=== PATIENT | male | born 1980 | race Caucasian/White ===

== ENCOUNTER 2018-01-01 23:47 | Inpatient (IN) | END 2018-01-03 03:12 | disposition left against medical advice (07) | DRG 392 ==

== ENCOUNTER 2018-08-15 11:49 | Inpatient (IN) | payer BC ==
[~2018-08-15] VITALS: Ht 177.8 cm; Wt 96.2 kg
[2018-08-15 13:12] VITALS: BP 116/68; PULSE 76; RESP 22
[2018-08-15 14:00] VITALS: BMI 65.5
[2018-08-15] MEDS ORDERED: ACETAMINOPHEN 325 MG TAB PO PRN (14:00)
[2018-08-15] MEDS ORDERED: ONDANSETRON 4 MG INJ IV PRN (14:00)
[2018-08-15] MEDS: morphine 2 MG INJ IV PRN ×3 (14:32→23:19)
[2018-08-15] MEDS: DEXTROSE 5%-0.9% NACL 1,000 ML IV SCH (14:43)
[2018-08-15] MEDS: PIPER-TAZO 3.375 GM IV (PMX) 100 ML IVPB SCH ×2 (14:43→21:40)
[2018-08-15 15:49] VITALS: BP 121/68; PULSE 84; RESP 22
[2018-08-15] MEDS ORDERED: morphine 4 MG/ML VIAL IV STA (16:41)
[2018-08-15 20:51] VITALS: BP 128/74; PULSE 88; RESP 16
[2018-08-15] MEDS: FAMOTIDINE 20 MG INJ IV SCH (21:37)
--- NOTE | 2018-08-16 01:49 | HP ---
DATE OF ADMISSION: 08/15/2018 HISTORY OF PRESENT ILLNESS: The patient is a 37-year-old male with history of diverticulitis, admitt ed with abdominal pain to [facility]. The patient's sodium 136, potassium 3.5. WBC 12.9. The patient is admitted for further management. PAST MEDICAL HISTORY: Positive for diverticulitis. ALLERGY HISTORY: Denies. FAMILY HISTORY: Denies. SOCIAL HISTORY: Denies. MEDICATION HISTORY: Listed as: 1. Tylenol. 2. Pepcid. REVIEW OF SYSTEMS: HEENT: Unremarkable. RESPIRATORY: Unremarkable. CARDIOVASCULAR: Unremarkable. ABDOMEN: As mentioned, abdominal pain. EXTREMITIES: Unremarkable. CENTRAL NERVOUS SYSTEM: Unremarkable. PHYSICAL EXAMINATION: GENERAL: The patient is awake and alert. VITAL SIGNS: Stable. HEENT: Head is atraumatic, normocephalic. Pupils are equal, round, reactive to light. NECK: Supple. No JVD. LUNGS: Clear. CARDIOVASCULAR: S1, S2. ABDOMEN: Soft. Tenderness on palpation of both lower quadrant. EXTREMITIES: No cyanosis, clubbing or edema. IMPRESSION: 1. Diverticulitis, diagnosed on CT scan from [facility]. 2. Anemia. 3. Mild leukocytosis. PLAN: To keep him n.p.o., IV fluid, PPI, pain medication and antibiotics. Orders were done. Dictated By: AB JONES/JAE Conf#: [id number] DID#: [id number]
[2018-08-16] MEDS: DEXTROSE 5%-0.9% NACL 1,000 ML IV SCH ×4 (03:20→20:08)
[2018-08-16] MEDS: morphine 2 MG INJ IV PRN ×6 (05:06→23:15)
[2018-08-16] MEDS: PIPER-TAZO 3.375 GM IV (PMX) 100 ML IVPB SCH ×3 (05:17→22:08)
[2018-08-16] MEDS ORDERED: PANTOPRAZOLE 40 MG INJ IV SCH (06:00)
[2018-08-16 07:54] VITALS: BP 116/62; PULSE 67; RESP 20
--- NOTE | 2018-08-16 09:43 | PN ---
Date/Time of Note Date/Time of Note DATE: 08/16/18 TIME: 09:41 Assessment/Plan VTE Prophylaxis Risk score (from [facility])>0 risk: 3 SCD applied (from [facility] [place] No SCD contraindicated: low risk/ambulating Pharmacological prophylaxis: NA/contraindicated Pharm contraindication: surgical contra Lines/Catheters IV C[facility]ter Type (from [facility]): Peripheral IV Assessment/Plan Hospital Course 1. Diverticulitis, diagnosed on CT scan from [facility]. Per pt he had a colonoscopy few month ago , was normal 2. Anemia. 3. SIRS. Assessment/Plan -GI proph Famotidine -DVT proph. SCD all the time while in bed -pain control -Dr German on case -NPO -IV fluids -No home meds Subjective 24 Hr Interval Summary Gastrointestinal: pain Exam/Review of Systems Exam Vitals Vital Signs Date Temp Pulse Resp B/P (MAP) Pulse Ox O2 O2 Flow FiO2 Time Delivery Rate 08/16/18 98.5 67 20 116/62 98 07:54 (80) Intake and Output 08/15/18 08/15/18 08/16/18 1515:00 23:00 07:00 IntakeIntake Total 830 ml 950 ml OutputOutput Total 1200 ml BalanceBalance 830 ml -250 ml Constitutional: alert, oriented Head: normocephalic Eyes: nl conjunctiva Neck: supple Respiratory: clear to auscultation Cardiovascular: regular rate and rhythm Gastrointestinal: soft, rebound or guarding (RLQ) Medications Medication Current Medications Dextrose/Sodium Chloride 1,000 ml @ 75 mls/hr [id number] IV Last administered on 08/16/18at 05:10; Admin Dose 75 MLS/HR; Start 08/15/18 at 14:00 Piperacillin Sod/ Tazobactam Sod 100 ml @ 200 mls/hr Q8 IVPB Last administered on 08/16/18at 05:17; Admin Dose 200 MLS/HR; Start 08/15/18 at 14:00 Ondansetron HCl (Zofran Inj) 4 mg Q6H PRN IV NAUSEA AND/OR VOMITING; Start 08/15/18 at 14:00 Morphine Sulfate (morphine) 2 mg Q4H PRN IV SEVERE PAIN LEVEL 7-10 Last administered on 08/16/18at 05:06; Admin Dose 2 MG; Start 08/15/18 at 14:00 Acetaminophen (Tylenol Tab) 650 mg Q6H PRN PO MILD PAIN(1-3)OR ELEVATED TEMP; Start 08/15/18 at 14:00 Famotidine (Pepcid Iv) 20 mg Q12 IV Last administered on 08/15/18at 21:37; Admin Dose 20 MG; Start 08/15/18 at 21:00 JULIA CROWLEY August 16, 2018 09:43
[2018-08-16] MEDS: FAMOTIDINE 20 MG INJ IV SCH ×2 (10:04→20:03)
--- NOTE | 2018-08-16 10:18 | CONS ---
Assessment/Plan Assessment/Plan Assessment/Plan (Daily) Impression: 1. Diverticulitis, recurrent at least 15 episodes 2. Anemia. 3. LLQ pain Assessment/Plan - continue famotidine - clear liquids - abx - surgery eval if abdominal pain doesn't improve for consideration of colectomy Consultation Date/Type/Reason Admit Date/Time August 15, 2018 at 13:09 Date of Consultation: August 16, 2018 Type of Consult GI Reason for Consultation abdominal pain, diverticulitis Date/Time of Note DATE: 08/16/18 TIME: 10:05 Hx of Present Illness 37-year-old male who is admitted for diverticulitis. GI consulted for the same. He has history of diverticulitis, reporting at least 15 episodes. His abdominal pain is at LLQ. No melena, BRBPR. Has some hematochezia. All point ros administered. Pertinent positives and negatives in HPI otherwise negative. Past Medical History Medical History: diverticulitis Medications Current Medications Dextrose/Sodium Chloride 1,000 ml @ 75 mls/hr [id number] IV Last administered on 08/16/18at 05:10; Admin Dose 75 MLS/HR; Start 08/15/18 at 14:00 Piperacillin Sod/ Tazobactam Sod 100 ml @ 200 mls/hr Q8 IVPB Last administered on 08/16/18at 05:17; Admin Dose 200 MLS/HR; Start 08/15/18 at 14:00 Ondansetron HCl (Zofran Inj) 4 mg Q6H PRN IV NAUSEA AND/OR VOMITING; Start 08/15/18 at 14:00 Morphine Sulfate (morphine) 2 mg Q4H PRN IV SEVERE PAIN LEVEL 7-10 Last ad ministered on 08/16/18at 10:01; Admin Dose 2 MG; Start 08/15/18 at 14:00 Acetaminophen (Tylenol Tab) 650 mg Q6H PRN PO MILD PAIN(1-3)OR ELEVATED TEMP; Start 08/15/18 at 14:00 Famotidine (Pepcid Iv) 20 mg Q12 IV Last administered on 08/15/18at 21:37; Admin Dose 20 MG; Start 08/15/18 at 21:00 Allergies: Coded Allergies: No Known Allergy (Unverified , 01/02/18) Past Surgical History Past Surgical Hx: other Family History Significant Family History: no pertinent family hx Social History Alcohol Use: none Smoking Status: Never smoker Drug Use: none Exam/Review of Systems Exam Vitals Vital Signs Date Temp Pulse Resp B/P (MAP) Pulse Ox O2 O2 Flow FiO2 Time Delivery Rate 08/16/18 98.5 67 20 116/62 98 07:54 (80) Intake and Output 08/15/18 08/15/18 08/16/18 1515:00 23:00 07:00 IntakeIntake Total 830 ml 950 ml OutputOutput Total 1200 ml BalanceBalance 830 ml -250 ml Constitutional: alert, oriented, well developed Psych: no complaints, nl mood/affect Head: normocephalic, atraumatic Eyes: nl conjunctiva, EOMI, nl lids ENMT: nl external ears & nose, nl lips & teeth, nl nasal mucosa & septum Neck: supple, non-tender Respiratory: clear to auscultation, normal air movement Cardiovascular: regular rate and rhythm, nl pulses Gastrointestinal: soft, bowel sounds, tender (LLQ) Extremities: normal pulses Neurological: nl mental status, nl speech, nl strength Medications Medication Current Medications Dextrose/Sodium Chloride 1,000 ml @ 75 mls/hr [id number] IV Last administered on 08/16/18at 05:10; Admin Dose 75 MLS/HR; Start 08/15/18 at 14:00 Piperacillin Sod/ Tazobactam Sod 100 ml @ 200 mls/hr Q8 IVPB Last administered on 08/16/18at 05:17; Admin Dose 200 MLS/HR; Start 08/15/18 at 14:00 Ondansetron HCl (Zofran Inj) 4 mg Q6H PRN IV NAUSEA AND/OR VOMITING; Start 08/15/18 at 14:00 Morphine Sulfate (morphine) 2 mg Q4H PRN IV SEVERE PAIN LEVEL 7-10 Last administered on 08/16/18at 10:01; Admin Dose 2 MG; Start 08/15/18 at 14:00 Acetaminophen (Tylenol Tab) 650 mg Q6H PRN PO MILD PAIN(1-3)OR ELEVATED TEMP; Start 08/15/18 at 14:00 Famotidine (Pepcid Iv) 20 mg Q12 IV Last administered on 08/15/18at 21:37; Admin Dose 20 MG; Start 08/15/18 at 21:00 GIANFRANCO NARVAEZ MD August 16, 2018 10:15
[2018-08-16 11:33] VITALS: Ht 177.8 cm; Wt 96.2 kg
[2018-08-16 13:51] VITALS: BP 110/64; PULSE 70; RESP 20
[2018-08-16 19:37] VITALS: BP 120/80; PULSE 74; RESP 18
[2018-08-17 02:15] VITALS: BP 110/56; PULSE 58; RESP 16
[2018-08-17] MEDS: morphine 2 MG INJ IV PRN ×3 (03:09→17:57)
[2018-08-17] MEDS: DEXTROSE 5%-0.9% NACL 1,000 ML IV SCH ×2 (05:37→13:25)
[2018-08-17] MEDS: PIPER-TAZO 3.375 GM IV (PMX) 100 ML IVPB SCH ×2 (05:37→13:21)
[2018-08-17 07:32] VITALS: BP 102/54; PULSE 58; RESP 19
--- NOTE | 2018-08-17 08:17 | CONS ---
Assessment/Plan Assessment/Plan Assessment/Plan (Daily) Impression: 1. Diverticulitis, recurrent at least 15 episodes 2. Anemia. 3. LLQ pain Assessment/Plan - continue famotidine - advance diet to low fat - if going to discharge, change abx to cipro and flagyl to finish 14 day course of abx for treatment of diverticulitis - outpatient surgery eval for consideration of colectomy as patient fulfilled criteria for surgical eval and management of diverticulitis as he has over 3 episodes of diverticulitis Consultation Date/Type/Reason Admit Date/Time August 15, 2018 at 13:09 Initial Consult Date 08/16/18 Type of Consult GI Date/Time of Note DATE: 08/17/18 TIME: 08:14 24 HR Interval Summary Free Text/Dictation abdominal pain improving, tolerated clear liquid diet, no n/v Exam/Review of Systems Exam Vitals Vital Signs Date Temp Pulse Resp B/P (MAP) Pulse Ox O2 O2 Flow FiO2 Time Delivery Rate 08/17/18 98.2 58 19 102/54 96 07:32 (70) Intake and Output 08/16/18 08/16/18 08/17/18 1515:00 23:00 07:00 IntakeIntake Total 820 ml 2280 ml 1180 ml OutputOutput Total 1500 ml 500 ml 600 ml BalanceBalance -680 ml 1780 ml 580 ml Constitutional: alert, oriented, well developed Psych: no complaints, nl mood/affect Head: normocephalic, atraumatic Eyes: nl conjunctiva, EOMI, nl lids ENMT: nl external ears & nose, nl lips & teeth, nl nasal mucosa & septum Neck: supple, non-tender Respiratory: clear to auscultation, normal air movement Cardiovascular: regular rate and rhythm, nl pulses Gastrointestinal: soft, bowel sounds, tender (LLQ) Results Result Diagram: 08/17/18 0456 08/17/18 0456 Results 24hrs Laboratory Tests Test 08/16/18 10:52 08/17/18 04:56 White Blood Count 9.3 7.4 # Red Blood Count 5.06 4.81 Hemoglobin 14.7 14.1 Hematocrit 42.9 40.9 L Mean Corpuscular Volume 84.8 85.0 Mean Corpuscular Hemoglobin 29.1 29.3 Mean Corpuscular Hemoglobin Concent 34.3 34.5 Red Cell Distribution Width 12.4 12.1 Platelet Count 185 # 174 Mean Platelet Volume 11.3 H 11.0 H Immature Granulocytes % 0.200 0.300 Neutrophils % 68.8 57.2 Lymphocytes % 22.3 31.8 Monocytes % 6.9 7.2 Eosinophils % 1.4 3.0 Basophils % 0.4 0.5 Nucleated Red Blood Cells % 0.0 0.0 Immature Granulocytes # 0.020 0.020 Neutrophils # 6.4 4.2 Lymphocytes # 2.1 2.3 Monocytes # 0.6 0.5 Eosinophils # 0.1 0.2 Basophils # 0.0 0.0 Nucleated Red Blood Cells # 0.0 0.0 Sodium Level 140 140 Potassium Level 4.1 3.9 Chloride Level 105 106 Carbon Dioxide Level 29 28 Anion Gap 6 6 Blood Urea Nitrogen 9 9 Creatinine 0.94 0.93 Est Glomerular Filtrat Rate mL/min > 60 > 60 Glucose Level 122 120 Calcium Level 8.7 8.5 Hemoglobin A1c 5.1 Medications Medication Current Medications Dextrose/Sodium Chloride 1,000 ml @ 75 mls/hr [id number] IV Last administered on 08/16/18at 20:08; Admin Dose 75 MLS/HR; Start 08/15/18 at 14:00 Piperacillin Sod/ Tazobactam Sod 100 ml @ 200 mls/hr Q8 IVPB Last administered on 08/17/18at 05:37; Admin Dose 200 MLS/HR; Start 08/15/18 at 14:00 Ondansetron HCl (Zofran Inj) 4 mg Q6H PRN IV NAUSEA AND/OR VOMITING; Start 08/15/18 at 14:00 Acetaminophen (Tylenol Tab) 650 mg Q6H PRN PO MILD PAIN(1-3)OR ELEVATED TEMP; Start 08/15/18 at 14:00 Famotidine (Pepcid Iv) 20 mg Q12 IV Last administered on 08/16/18at 20:03; Admin Dose 20 MG; Start 08/15/18 at 21:00 Morphine Sulfate (morphine) 2 mg Q3H PRN IV SEVERE PAIN LEVEL 7-10 Last administered on 08/17/18 03:09; Admin Dose 2 MG; Start 08/16/18 at 10:30 GIANFRANCO NARVAEZ MD August 17, 2018 08:17
[2018-08-17] MEDS: FAMOTIDINE 20 MG INJ IV SCH (08:32)
--- NOTE | 2018-08-17 09:06 | DS ---
Date/Time of Note Date/Time of Note DATE: 08/17/18 TIME: 09:05 Discharge Summary Admission/Discharge Info Admit Date/Time August 15, 2018 at 13:09 Discharge Date/Time Discharge Diagnosis diverticulitis Patient Condition: Stable Consults DR German, Dr NARVAEZ gastroenterology Hospital Course HISTORY OF PRESENT ILLNESS: The patient is a 37-year-old male with history of diverticulitis, admitted with abdominal pain to [facility]. The patient's sodium 136, potassium 3.5. WBC 12.9. The patient is admitted for further management. PAST MEDICAL HISTORY: Positive for diverticulitis. ALLERGY HISTORY: Denies. FAMILY HISTORY: Denies. SOCIAL HISTORY: Denies. MEDICATION HISTORY: Listed as: 1. Tylenol. 2. Pepcid.1. Diverticulitis, diagnosed on CT scan from [facility]. Per pt he had a colonoscopy few month ago , was normal 2. Anemia. 3. SIRS. Dr Narvaez consulted pt on gastroenterology. He recommended to continue famotidine. He was started on clear liquids, tolerated well. He was c/ed with abx. Also he said that if abdominal pain doesn't improve we should consider colectomy. Pt is clinically improved, he reported no pain and was able to tolerate soft diet. He ambulates in unit. There were minimal discomfort in abdomen. Follow-up Plan PCP 1 week Primary Care Provider Not On Staff Doctor Time spent on discharge: < 30 minutes Pending Labs Laboratory Tests Test 08/16/18 10:52 08/17/18 04:56 White Blood Count 9.3 10^3/ul (4.8-10.8) 7.4 10^3/ul (4.8-10.8) Red Blood Count 5.06 10^6/ul (4.70-6.10) 4.81 10^6/ul (4.70-6.10) Hemoglobin 14.7 g/dl (14.0-18.0) 14.1 g/dl (14.0-18.0) Hematocrit 42.9 % (42.0-52.0) 40.9 % (42.0-52.0) Mean Corpuscular Volume 84.8 fl (82.0-101.0) 85.0 fl (82.0-101.0) Mean Corpuscular 29.1 pg (29.0-33.0) 29.3 pg (29.0-33.0) Hemoglobin Mean Corpuscular 34.3 g/dl (32.0-37.0) 34.5 g/dl (32.0-37.0) Hemoglobin Concent Red Cell Distribution 12.4 % (11.5-14.5) 12.1 % (11.5-14.5) Width Platelet Count 185 10^3/UL (140-415) 174 10^3/UL (140-415) Mean Platelet Volume 11.3 fl (7.4-10.4) 11.0 fl (7.4-10.4) Immature Granulocytes % 0.200 % (0.001-0.429) 0.300 % (0.001-0.429) Neutrophils % 68.8 % (39.0-77.0) 57.2 % (39.0-77.0) Lymphocytes % 22.3 % (15.0-51.0) 31.8 % (15.0-51.0) Monocytes % 6.9 % (0.0-11.0) 7.2 % (0.0-11.0) Eosinophils % 1.4 % (0.0-7.0) 3.0 % (0.0-7.0) Basophils % 0.4 % (0.0-2.0) 0.5 % (0.0-2.0) Nucleated Red Blood Cells 0.0 /100WBC (0.0-0.0) 0.0 /100WBC (0.0-0.0) % Immature Granulocytes # 0.020 10^3/ul (0.0-0.031) 0.020 10^3/ul (0.0-0.031) Neutrophils # 6.4 10^3/ul (1.6-7.5) 4.2 10^3/ul (1.6-7.5) Lymphocytes # 2.1 10^3/ul (0.8-2.9) 2.3 10^3/ul (0.8-2.9) Monocytes # 0.6 10^3/ul (0.3-0.9) 0.5 10^3/ul (0.3-0.9) Eosinophils # 0.1 10^3/ul (0.0-0.5) 0.2 10^3/ul (0.0-0.5) Basophils # 0.0 10^3/ul (0.0-0.1) 0.0 10^3/ul (0.0-0.1) Nucleated Red Blood Cells 0.0 10^3/ul (0.0-0.0) 0.0 10^3/ul (0.0-0.0) # Sodium Level 140 mmol/L (135-144) 140 mmol/L (135-144) Potassium Level 4.1 mmol/L (3.5-5.1) 3.9 mmol/L (3.5-5.1) Chloride Level 105 mmol/L (97-110) 106 mmol/L (97-110) Carbon Dioxide Level 29 mmol/L (21-31) 28 mmol/L (21-31) Anion Gap 6 (5-13) 6 (5-13) Blood Urea Nitrogen 9 mg/dl (7-20) 9 mg/dl (7-20) Creatinine 0.94 mg/dl (0.61-1.24) 0.93 mg/dl (0.61-1.24) Est Glomerular Filtrat > 60 mL/min (>60) > 60 mL/min (>60) Rate mL/min Glucose Level 122 mg/dl (70-220) 120 mg/dl (70-220) Calcium Level 8.7 mg/dl (8.4-10.2) 8.5 mg/dl (8.4-10.2) Hemoglobin A1c 5.1 % (0-5.9) JULIA CROWLEY August 17, 2018 09:06
--- NOTE | 2018-08-17 10:42 | PN ---
Date/Time of Note Date/Time of Note DATE: 08/17/18 TIME: 10:41 Assessment/Plan VTE Prophylaxis Risk score (from [facility] [place])>0 risk: 1 SCD applied (from [facility] [place]): No SCD contraindicated: low risk/ambulating Pharmacological prophylaxis: NA/contraindicated Pharm contraindication: low risk/ambulating Lines/Catheters IV Catheter Type (from [facility]): Peripheral IV Assessment/Plan Hospital Course 1. Diverticulitis, diagnosed on CT scan from [facility]. Per pt he had a colonoscopy few month ago , was normal 2. Anemia. 3. SIRS. 4. Obesity Assessment/Plan -GI proph Famotidine -DVT proph. SCD all the time while in bed -pain control -Dr German on case -fat diet -IV fluids stop -ambulate -dc palnning today -No home meds Result Diagram: 08/17/18 0456 08/17/18 0456 Results 24hrs Laboratory Tests Test 08/16/18 10:52 08/17/18 04:56 White Blood Count 9.3 7.4 # Red Blood Count 5.06 4.81 Hemoglobin 14.7 14.1 Hematocrit 42.9 40.9 L Mean Corpuscular Volume 84.8 85.0 Mean Corpuscular Hemoglobin 29.1 29.3 Mean Corpuscular Hemoglobin Concent 34.3 34.5 Red Cell Distribution Width 12.4 12.1 Platelet Count 185 # 174 Mean Platelet Volume 11.3 H 11.0 H Immature Granulocytes % 0.200 0.300 Neutrophils % 68.8 57.2 Lymphocytes % 22.3 31.8 Monocytes % 6.9 7.2 Eosinophils % 1.4 3.0 Basophils % 0.4 0.5 Nucleated Red Blood Cells % 0.0 0.0 Immature Granulocytes # 0.020 0.020 Neutrophils # 6.4 4.2 Lymphocytes # 2.1 2.3 Monocytes # 0.6 0.5 Eosinophils # 0.1 0.2 Basophils # 0.0 0.0 Nucleated Red Blood Cells # 0.0 0.0 Sodium Level 140 140 Potassium Level 4.1 3.9 Chloride Level 105 106 Carbon Dioxide Level 29 28 Anion Gap 6 6 Blood Urea Nitrogen 9 9 Creatinine 0.94 0.93 Est Glomerular Filtrat Rate mL/min > 60 > 60 Glucose Level 122 120 Calcium Level 8.7 8.5 Hemoglobin A1c 5.1 Subjective 24 Hr Interval Summary Constitutional: no complaints, improved Gastrointestinal: constipation; No no complaints, No blood, No decreased appetite, No diarrhea, No flatus, No nausea, No passing stool, No vomiting, No other Exam/Review of Systems Exam Vitals Vital Signs Date Temp Pulse Resp B/P (MAP) Pulse Ox O2 O2 Flow FiO2 Time Delivery Rate 08/17/18 98.2 58 19 102/54 96 07:32 (70) Intake and Output 08/16/18 08/16/18 08/17/18 1515:00 23:00 07:00 IntakeIntake Total 820 ml 2280 ml 1180 ml OutputOutput Total 1500 ml 500 ml 600 ml BalanceBalance -680 ml 1780 ml 580 ml Constitutional: alert, oriented Respiratory: clear to auscultation Cardiovascular: regular rate and rhythm Gastrointestinal: soft Results Results 24hrs Laboratory Tests Test 08/16/18 10:52 08/17/18 04:56 White Blood Count 9.3 7.4 # Red Blood Count 5.06 4.81 Hemoglobin 14.7 14.1 Hematocrit 42.9 40.9 L Mean Corpuscular Volume 84.8 85.0 Mean Corpuscular Hemoglobin 29.1 29.3 Mean Corpuscular Hemoglobin Concent 34.3 34.5 Red Cell Distribution Width 12.4 12.1 Platelet Count 185 # 174 Mean Platelet Volume 11.3 H 11.0 H Immature Granulocytes % 0.200 0.300 Neutrophils % 68.8 57.2 Lymphocytes % 22.3 31.8 Monocytes % 6.9 7.2 Eosinophils % 1.4 3.0 Basophils % 0.4 0.5 Nucleated Red Blood Cells % 0.0 0.0 Immature Granulocytes # 0.020 0.020 Neutrophils # 6.4 4.2 Lymphocytes # 2.1 2.3 Monocytes # 0.6 0.5 Eosinophils # 0.1 0.2 Basophils # 0.0 0.0 Nucleated Red Blood Cells # 0.0 0.0 Sodium Level 140 140 Potassium Level 4.1 3.9 Chloride Level 105 106 Carbon Dioxide Level 29 28 Anion Gap 6 6 Blood Urea Nitrogen 9 9 Creatinine 0.94 0.93 Est Glomerular Filtrat Rate mL/min > 60 > 60 Glucose Level 122 120 Calcium Level 8.7 8.5 Hemoglobin A1c 5.1 Medications Medication Current Medications Dextrose/Sodium Chloride 1,000 ml @ 75 mls/hr [id number] IV Last administered on 08/16/18at 20:08; Admin Dose 75 MLS/HR; Start 08/15/18 at 14:00 Piperacillin Sod/ Tazobactam Sod 100 ml @ 200 mls/hr Q8 IVPB Last administered on 08/17/18at 05:37; Admin Dose 200 MLS/HR; Start 08/15/18 at 14:00 Ondansetron HCl (Zofran Inj) 4 mg Q6H PRN IV NAUSEA AND/OR VOMITING; Start 08/15/18 at 14:00 Acetaminophen (Tylenol Tab) 650 mg Q6H PRN PO MILD PAIN(1-3)OR ELEVATED TEMP; Start 08/15/18 at 14:00 Famotidine (Pepcid Iv) 20 mg Q12 IV Last administered on 08/17/18at 08:32; Admin Dose 20 MG; Start 08/15/18 at 21:00 Morphine Sulfate (morphine) 2 mg Q3H PRN IV SEVERE PAIN LEVEL 7-10 Last adminis tered on 08/17/18at 10:40; Admin Dose 2 MG; Start 08/16/18 at 10:30 JULIA CROWLEY August 17, 2018 10:42
[2018-08-17] MEDS ORDERED: CIPR500T4 PO (10:45)
[2018-08-17] MEDS ORDERED: METR-121 PO (10:45)
[2018-08-17 15:45] VITALS: BP_SYST 125; BP_SYST 137; BP_DIAS 68; BP_DIAS 73; PULSE 77; RESP 19
[2018-08-17 15:50] VITALS: BP 127/73; PULSE 77; RESP 18
== END 2018-08-17 19:05 | disposition home or self-care (01) | DRG 392 ==
LOC: 2NE 13:09
PROVIDERS: ADMIT Internal Medicine Nephrology; ATTEND Internal Medicine Nephrology
DX: K57.32 Diverticulitis of large intestine without perforation or abscess without bleeding (principal); R65.10 Systemic inflammatory response syndrome (SIRS) of non-infectious origin without acute organ dysfunction; D64.9 Anemia, unspecified; E66.9 Obesity, unspecified; Z68.30 Body mass index [BMI] 30.0-30.9, adult
CPT/HCPCS: 80048; 83036; 85025; J2270; J2543; J7042